=== PATIENT | male | born 1955 | race African-American/Black ===

== ENCOUNTER 2020-04-16 20:01 | Inpatient (IN) ==
[2020-04-16] MEDS ORDERED: SODIUM CHLORIDE 0.9% 1,000 ML IV STA ×2 (20:22→23:07)
[2020-04-16 20:30] LABS: Basophils % 0.2 % (0.0-0.8); Hematocrit 48.7 VOL% (42.0-52.0); Hemoglobin 15.8 GM/DL (14.0-18.0); Immature Granulocytes % 0.5 %; Immature Granulocytes Absolute 0.05 #; Lymphocytes # 1.3 10*3/uL (1.4-4.0); Lymphocytes % 11.9 % (21.2-54.2); Mean Corpuscular HGB Conc 32.4 GM/DL (32-36); Mean Corpuscular Volume 99.6 FL (87-102); Mean Platelet Volume 12.6 FL (9.6-12.0); Monocytes % 4.6 % (1.7-12.7); Neutrophils % 82.8 % (38.7-73.9); Platelet Count 192 T/CUMM (130-400); Red Blood Count 4.89 MC/CUMM (3.8-5.5); Red Cell Distribution Width 12.5 % (9.3-17.3); White Blood Count 10.8 T/CUMM (4-12)
[2020-04-16 20:46] LABS: Albumin 3.2 G/DL (3.4-5.0); Bilirubin,Total 0.5 MG/DL (0.2-1.0); Osmolality,Calculated 342.1 MOS/KG (273-304); Potassium 5.8 MMOL/L (3.5-5.1); Total Protein 6.1 G/DL (6.4-8.3)
[2020-04-16] MEDS ORDERED: INSULIN REGULAR DRIP 100 ML IV PRN (20:48)
[2020-04-16 21:16] LABS: ABG Base Excess -8.7 MMOL/L (-2.5-2.5); ABG HCO3 17.6 MMOL/L (20-26); ABG Oxygen Saturation 95.7 % (95-100); ABG PH 7.304 (7.35-7.45); ABG PO2 92.3 MM HG (80-95); ABG TCO2 14.5 MMOL/L (23-27); Allen Test Positive; Pt O2 Delivery Device Room Air
[2020-04-16 21:22] LABS: Bilirubin,Urine Negative (Negative); Blood, Urine Negative (Negative); Glucose,Urine (UA) >=500 mg/dL (Negative); Ketones,Urine 20 mg/dL (Negative); Mucus,Urine Occasional /LPF (Occasional); Nitrite,Urine Negative (Negative); Protein,Urine Negative; RBC,Urine 1 /HPF (0-4); Urine Appearance CLEAR (Clear); Urine Color Yellow (Yellow); Urine Specific Gravity 1.024 (1.001-1.035); Urine Urobilinogen < 2.0 EU/DL (0.2-1.0); WBC,Urine 1 /HPF (0-6)
[2020-04-16 21:25] LABS: Barbiturates Screen,Urine Negative (Negative); Benzodiazepines Screen,Urine Negative (Negative); Cannabinoid Screen,Urine Negative (Negative); Opiate Screen,Urine Negative (Negative); Phencyclidine Screen,Urine Negative (Negative)
[2020-04-16 21:51] LABS: INR 1.2; PT Patient Result 12.6 SECS (9.8-11.9)
[2020-04-16] MEDS ORDERED: SODIUM PHOSPHATE INJ 20 MMOL in SODIUM CHLORIDE 0.9% 250 ML IV PRN (22:03)
[2020-04-16] MEDS ORDERED: INSULIN REGULAR 100 UNIT/ML IV ONE (22:03)
[2020-04-16] MEDS ORDERED: MAGNESIUM SULF RIDER 4 GM in PREMIX 1 EACH IV PRN (22:03)
[2020-04-16] MEDS ORDERED: MAGNESIUM SULF RIDER 2 GM in PREMIX 1 EACH IV PRN (22:03)
[2020-04-16] MEDS ORDERED: DEXTROSE 50% 25 GM/50 ML VIAL IV PRN ×2 (22:03)
[2020-04-16] MEDS ORDERED: SODIUM BICARB INJ 100 MEQ in STERILE WATER INJ 400 ML IV PRN (22:03)
[2020-04-16] MEDS ORDERED: ACETAMINOPHEN 325 MG TABLET PO PRN (22:16)
[2020-04-16] MEDS ORDERED: ONDANSETRON 4 MG/2 ML VIAL IV PRN (22:16)
[2020-04-16] MEDS ORDERED: DOCUSATE SODIUM 100 MG CAPSULE PO PRN (22:16)
[2020-04-16] MEDS ORDERED: ALBUTEROL 2.5 MG/3 ML NEB RESP TX PRN (22:16)
[2020-04-16] MEDS: INSULIN REGULAR DRIP 100 ML IV SCH (22:44)
[2020-04-16] MEDS: SODIUM CHLORIDE 0.9% 1,000 ML IV SCH (22:50)
[2020-04-17] MEDS ORDERED: ENOXAPARIN 40 MG/0.4 ML SYRINGE ONE (00:09)
[2020-04-17] MEDS: ENOXAPARIN 40 MG/0.4 ML SYRINGE SUBCUT SCH ×2 (00:15→21:45)
[2020-04-17 00:21] LABS: Calcium 9.6 MG/DL (8.5-10.1); Osmolality,Calculated 344.9 MOS/KG (273-304); Potassium 3.9 MMOL/L (3.5-5.1)
[2020-04-17] MEDS: SODIUM CHLORIDE 0.9% 1,000 ML IV SCH (01:21)
[2020-04-17 02:40] LABS: Calcium 8.8 MG/DL (8.5-10.1); Potassium 3.9 MMOL/L (3.5-5.1)
[2020-04-17] MEDS ORDERED: SODIUM CHLORIDE 0.9% 1,000 ML IV SCH (03:03)
[2020-04-17 04:26] LABS: Basophils % 0.2 % (0.0-0.8); Hematocrit 41.8 VOL% (42.0-52.0); Hemoglobin 13.8 GM/DL (14.0-18.0); Immature Granulocytes % 0.4 %; Immature Granulocytes Absolute 0.04 #; Lymphocytes # 1.8 10*3/uL (1.4-4.0); Lymphocytes % 19.2 % (21.2-54.2); Mean Corpuscular Volume 98.4 FL (87-102); Mean Platelet Volume 12.1 FL (9.6-12.0); Monocytes % 5.6 % (1.7-12.7); Neutrophils % 74.6 % (38.7-73.9); Platelet Count 151 T/CUMM (130-400); Red Blood Count 4.25 MC/CUMM (3.8-5.5); Red Cell Distribution Width 12.7 % (9.3-17.3); White Blood Count 9.4 T/CUMM (4-12)
[2020-04-17 07:55] LABS: Calcium 8.3 MG/DL (8.5-10.1); Osmolality,Calculated 335.6 MOS/KG (273-304); Potassium 3.8 MMOL/L (3.5-5.1)
[2020-04-17] MEDS ORDERED: SODIUM CHLORIDE 0.45% 1,000 ML IV SCH ×2 (09:00→15:03)
[2020-04-17] MEDS ORDERED: PANTOPRAZOLE 40 MG VIAL IV SCH (09:00)
[2020-04-17] MEDS: DEXTROSE 5% NACL 0.45% 1,000 ML IV SCH ×5 (09:05→21:42)
[2020-04-17 11:03] LABS: Calcium 7.8 MG/DL (8.5-10.1); Osmolality,Calculated 324.6 MOS/KG (273-304); Potassium 3.7 MMOL/L (3.5-5.1)
[2020-04-17 16:40] LABS: Osmolality,Calculated 308.2 MOS/KG (273-304); Potassium 3.9 MMOL/L (3.5-5.1)
[2020-04-17] MEDS: POTASSIUM CHLORIDE RIDER 10 MEQ in PREMIX 1 EACH IV PRN ×2 (17:00→19:45)
[2020-04-17 19:02] LABS: Calcium 7.5 MG/DL (8.5-10.1); Osmolality,Calculated 314.6 MOS/KG (273-304); Potassium 3.7 MMOL/L (3.5-5.1)
[2020-04-17] MEDS: SODIUM CHLORIDE 0.45% 1,000 ML IV SCH (21:07)
[2020-04-17] MEDS: INSULIN REGULAR DRIP 100 ML IV SCH (21:51)
[2020-04-17 23:41] LABS: Calcium 7.6 MG/DL (8.5-10.1); Osmolality,Calculated 302.9 MOS/KG (273-304); Potassium 3.4 MMOL/L (3.5-5.1)
[2020-04-18] MEDS: POTASSIUM CHLORIDE RIDER 10 MEQ in PREMIX 1 EACH IV PRN ×3 (00:32→02:58)
[2020-04-18] MEDS: DEXTROSE 5% NACL 0.45% 1,000 ML IV SCH ×4 (01:25→06:50)
[2020-04-18 04:01] LABS: Calcium 7.6 MG/DL (8.5-10.1); Osmolality,Calculated 291.6 MOS/KG (273-304)
[2020-04-18 04:10] LABS: Potassium 6.6 MMOL/L (3.5-5.1)
[2020-04-18] MEDS ORDERED: SODIUM POLYSTYRENE SULFATE 15 GM/60 ML BOTTLE PO ONE (04:14)
[2020-04-18] MEDS ORDERED: DEXTROSE 50% 25 GM/50 ML VIAL IV PRN (04:52)
[2020-04-18] MEDS: INSULIN REGULAR 100 UNIT/ML SUBCUT SCH ×5 (04:58→21:36)
[2020-04-18] MEDS: SODIUM CHLORIDE 0.45% 1,000 ML IV SCH (05:02)
[2020-04-18 05:05] LABS: Basophils % 0.3 % (0.0-0.8); Eosinophils # 0.1 10*3/uL (0.0-0.87); Eosinophils % 1.2 % (0.00-10.9); Hemoglobin 12.5 GM/DL (14.0-18.0); Immature Granulocytes % 0.4 %; Immature Granulocytes Absolute 0.04 #; Lymphocytes # 2.1 10*3/uL (1.4-4.0); Lymphocytes % 20.7 % (21.2-54.2); Mean Corpuscular HGB Conc 32.1 GM/DL (32-36); Mean Corpuscular Volume 99.5 FL (87-102); Mean Platelet Volume 12.2 FL (9.6-12.0); Monocytes % 4.4 % (1.7-12.7); Platelet Count 123 T/CUMM (130-400); Red Blood Count 3.92 MC/CUMM (3.8-5.5); Red Cell Distribution Width 12.9 % (9.3-17.3)
[2020-04-18 06:25] LABS: Calcium 7.6 MG/DL (8.5-10.1); Osmolality,Calculated 300.9 MOS/KG (273-304); Potassium 3.7 MMOL/L (3.5-5.1)
[2020-04-18] MEDS: PANTOPRAZOLE 40 MG TABLET PO SCH (09:20)
[2020-04-18] MEDS: TAMSULOSIN 0.4 MG CAPSULE PO SCH (12:07)
[2020-04-18] MEDS: ENOXAPARIN 40 MG/0.4 ML SYRINGE SUBCUT SCH (21:36)
[2020-04-19] MEDS: INSULIN REGULAR 100 UNIT/ML SUBCUT SCH ×3 (00:40→10:26)
[2020-04-19 05:23] LABS: Basophils % 0.4 % (0.0-0.8); Eosinophils # 0.1 10*3/uL (0.0-0.87); Eosinophils % 1.9 % (0.00-10.9); Hemoglobin 12.2 GM/DL (14.0-18.0); Immature Granulocytes % 0.4 %; Immature Granulocytes Absolute 0.02 #; Lymphocytes # 1.5 10*3/uL (1.4-4.0); Lymphocytes % 30.9 % (21.2-54.2); Mean Corpuscular HGB Conc 33.9 GM/DL (32-36); Mean Corpuscular Volume 95.2 FL (87-102); Mean Platelet Volume 12.6 FL (9.6-12.0); Monocytes % 6.2 % (1.7-12.7); Neutrophils % 60.2 % (38.7-73.9); Platelet Count 88 T/CUMM (130-400); Red Blood Count 3.78 MC/CUMM (3.8-5.5); Red Cell Distribution Width 12.6 % (9.3-17.3); White Blood Count 4.9 T/CUMM (4-12)
[2020-04-19 05:46] LABS: Hypochromasia Slight; Microcytosis Slight
[2020-04-19 05:47] LABS: Platelet Estimate Decreased
[2020-04-19 05:48] LABS: Calcium 7.9 MG/DL (8.5-10.1); Osmolality,Calculated 292.6 MOS/KG (273-304); Potassium 3.4 MMOL/L (3.5-5.1)
[2020-04-19] MEDS: POTASSIUM CHLORIDE 20 MEQ TABLET PO PRN ×2 (08:10→08:13)
[2020-04-19] MEDS: PANTOPRAZOLE 40 MG TABLET PO SCH (08:11)
[2020-04-19] MEDS: TAMSULOSIN 0.4 MG CAPSULE PO SCH (08:11)
[2020-04-19] MEDS ORDERED: ASPIRIN EC 81 MG TABLET PO SCH (09:00)
[2020-04-19] MEDS ORDERED: CHOLECALCIFEROL 400 UNIT TABLET PO SCH (09:00)
[2020-04-19] MEDS ORDERED: CYANOCOBALAMIN 5000 MCG PO SCH (09:00)
[2020-04-19] MEDS ORDERED: MAGNESIUM OXIDE 400 MG TABLET PO SCH (09:00)
[2020-04-19] MEDS ORDERED: ROSUVASTATIN 10 MG TABLET PO SCH (09:00)
[2020-04-19] MEDS ORDERED: ZINC GLUCONATE 50 MG TABLET PO SCH (09:00)
[2020-04-19] MEDS ORDERED: OMEGA 3 ACID ETHYL ESTERS 1 GM CAPSULE PO SCH (09:00)
[2020-04-19 11:38] VITALS: BP 107/64
== END 2020-04-19 12:38 | disposition home or self-care (01) | DRG 637 ==
LOC: N.ED 20:01 → SUATTDRO 23:29 → N.CC 23:29 → N.4E 04-18 17:37
PROVIDERS: ADMIT Internal Medicine; ATTEND Internal Medicine Geriatric Medicine